=== PATIENT | male | born 1980 | race Caucasian/White ===

== ENCOUNTER 2019-12-30 18:47 | Emergency (ER) | payer OTHER, SELFPAY ==
--- NOTE | ~2019-12-30 | US_ITS ---
EXAMINATION: US scrotum doppler DATE: 12/30/2019 21:28 INDICATION: Right testicular swelling TECHNIQUE: Testicular sonogram utilizing grayscale and Doppler COMPARISON: None. FINDINGS: The right testis measures 5.1 x 3.3 x 3.1 cm a and has a heterogeneous appearance. The left testis measures 4.5 x 3.3 x 2.5 cm. There is normal vascular flow to both testes. The right epididym is is normal with normal vascular flow. The left epididymis is normal with normal vascular flow. Ther e is no varicocele or hydrocele. IMPRESSION: 1. Heterogeneous appearance of the right testicle with intact vascular flow, possibly reflecting orch itis. Reviewed, dictated and finalized at location A. IMPRESSION: 1. Heterogeneous appearance of the right testicle with intact vascular flow, po ssibly reflecting orchitis.
[2019-12-30 18:51] VITALS: BP 144/89; PULSE 53; RESP 20; TEMP 37.1; O2SAT 100
--- NOTE | 2019-12-30 20:56 | ED.ABDPAIN ---
HPI - Abdominal Pain General Chief Complaint: Urogenital-Male <Charly Carson PA-C - Last Filed: 12/30/19 21:58> Stated Complaint: rt testicle swelling x 2 days <Charly Carson PA-C - Last Filed: 12/30/19 21:58> Time Seen by Provider: 12/30/19 20:23 <Charly Carson PA-C - Last Filed: 12/30/19 21:58> Source: patient <Charly Carson PA-C - Last Filed: 12/30/19 21:58> Mode of arrival: ambulatory <Charly Carson PA-C - Last Filed: 12/30/19 21:58> Limitations: no limitations <Charly Carson PA-C - Last Filed: 12/30/19 21:58> History of Present Illness HPI narrative: Patient is a 39-year-old male who presents to emergency department for evaluation of right testicular pain patient was seen by primary care today had outpatient ultrasound of the scrotum revealing possible limited flow to the right testicle. Patient noted a high riding tender right testicle Monday which has persisted worse with position activity and movement. Patient denies injury trauma or similar occurrence in the past. His primary care doctor reportedly had a discussion with urology Dr. Calhoun. Patient was advised to come to the emergency department for repeat imaging. On arrival patient resting comfortably in the room in no distress. <Charly Carson PA-C - Last Filed: 12/30/19 21:58> Related Data Allergies/Adverse Reactions: Allergies Allergy/AdvReac Type Severity Reaction Status Date / Time No Known Allergies Allergy Verified 12/30/19 19:56 <Charly Casron PA-C - Last Filed: 12/30/19 21:58> Review of Systems Review of Systems: All systems reviewed & are unremarkable except as noted in HPI and below <Charly Carson PA-C - Last Filed: 12/30/19 21:58> PMFSH Social History Social History: Social History (Updated 12/30/19 @ 20:58 by Charly Carson PA-C) Smoking status: Never smoker <Charly Carson PA-C - Last Filed: 12/30/19 21:58> Exam Narrative: Exam Narrative: GENERAL: Well-appearing, well-nourished, and in no acute distress. HEAD: Normocephalic, atraumatic. EYES: PERRLA and EOMI. ENT: Nares clear, no rhinorrhea or epistaxis. Mucous membranes moist. CHEST: Clear to auscultation. No respiratory distress. No wheezes rales or rhonchi HEART: Regular rate and rhythm. No murmur heard. Normal peripheral pulses. ABDOMEN: Soft, nontender, nondistended MALE GENITOURINARY: Patient's right testicle slightly more high riding than the left with tenderness to palpation no swelling deformity or other abnormal findings of the male genitourinary EXTREMITIES: Normal range of motion. No edema. SKIN: Warm, dry, no rash. NEURO: No focal deficits. Alert and oriented x3. PSYCH: Normal mood and affect. <CESIA Anthony Last Filed: 12/30/19 21:58> Course Consultations Consultation #1: Case discussed with urology Dr. Calhoun would like the patient to have repeat ultrasound and discussion after the findings have been given to make a plan for the patient <Charly Carson PA-C - Last Filed: 12/30/19 21:58> Date: 12/30/19 <CESIA Anthony Last Filed: 12/30/19 21:58> Time: 20:59 <CESIA Anthony Filed: 12/30/19 21:58> Consultation #2: Discussed case with radiologist and urologist noting that there is flow to the right testicle and recommends that the patient can follow-up on an outpatient basis in clinic. Provided with reasons to return <CESIA Anthony Last Filed: 12/30/19 21:58> Date: 12/30/19 <CESIA Anthony Last Filed: 12/30/19 21:58> Time: 21:54 <CESIA Anthony Filed: 12/30/19 21:58> Vital Signs Vital signs: Vital Signs Temperature 98.8 F 12/30/19 18:51 Pulse Rate 53 L 12/30/19 18:51 Respiratory Rate 20 12/30/19 18:51 Blood Pressure 144/89 H 12/30/19 18:51 Pulse Oximetry 100 12/30/19 18:51 Temperature 98.8 F 12/30/19 18:51 Pulse Rate 88
[2019-12-30 21:03] LABS: Add Urine Microscopic? NO; Appearance Urine Clear (Clear); Bilirubin Urine Negative (Negative); Blood Urine Negative (Negative); Color Urine Yellow (Yellow); Glucose Urine UA Negative (Negative); Ketones Urine Negative (Negative); Leukocyte Esterase Ur Negative LEU/UL (Negative); Nitrate Urine Negative (Negative); Protein Urine Negative (Negative); Specific Grav Ur 1.024 (1.001-1.035); Urobilinogen Urine Negative mg/dL (<2.0)
[2019-12-30 22:11] VITALS: BP 132/77; PULSE 88; RESP 18; O2SAT 98
== END 2019-12-30 22:13 | disposition home or self-care (01) ==
PROVIDERS: Emergency Medicine Emergency Medical Services; Emergency Provider Emergency Medicine; PCP Internal Medicine
DX: N50.811 Right testicular pain (principal)
CPT/HCPCS: 76870; 81003; 87491; 87591; 93976; 99284

== ENCOUNTER → 2020-02-07 13:23 | Outpatient (CLI) | payer OTHER, SELFPAY ==
--- NOTE | ~2020-02-07 | US_ITS ---
EXAMINATION: US scrotum doppler DATE: 02/07/2020 14:09 INDICATION: Right testicular pain and swelling TECHNIQUE: Testicular sonogram utilizing grayscale and Doppler COMPARISON: None. FINDINGS: The right testis measures 2.6 x 2.6 x 4.2 cm. The left testis measures 4.0 x 2.8 x 3.3 cm. Symmetric normal grayscale appearance to both testes. There is normal vascular flow to both testes. Bilateral 5 mm epididymal cysts. Bilateral epididymides are otherwise normal with normal vascular flow. There i s no varicocele or hydrocele. IMPRESSION: 1. Bilateral 5 mm epididymal cysts. Otherwise normal scrotal ultrasound. Reviewed, dictated and finalized at location A.
== END ==
PROVIDERS: Visit Provider Urology
DX: N50.811 Right testicular pain (principal); N50.3 Cyst of epididymis
CPT/HCPCS: 76870; 93976